=== PATIENT | female | born 1940 | race American Indian/Alaskan Native ===

== ENCOUNTER 2017-10-03 13:16 | Emergency (ER) | payer MEDICARE, MEDICAID ==
[2017-10-03 13:17] VITALS: BMI 25.7
[2017-10-03] MEDS ORDERED: Sodium Chloride 0.9% 1,000 ML IV STA (14:02)
[2017-10-03] MEDS ORDERED: Pantoprazole 40 MG in Sodium Chloride 0.9% 100 ML IV STA (14:02)
--- NOTE | 2017-10-03 14:02 | ED PDOC ---
Arrival/HPI - General Time Seen by Provider: 10/03/17 13:29 Historian: Patient - History of Present Illness Narrative History of Present Illness (Text): 10/03/17 14:01 A 77 year old female, whose past medical history includes hypertension, diabetes type 2, colitis, arthritis, GERD, and tubal ligation, presents to the emergency department complaining of abdominal cramping, nausea, and weakness. Patient reports she recently was discharged from another institution for episode of colitis . She notes also experiencing headache, lightheadedness, and "shocks in head" sensation. Patient mentions no other complaints at this time. 10/04/17 07:43 Past Medical History - Provider Review Nursing Documentation Reviewed: Yes - Infectious Disease Hx of Infectious Diseases: None - Tetanus Immunization Tetanus Immunization: Unknown - Cardiac Hx Hypertension: Yes - Neurological Hx Syncope: Yes - Endocrine/Metabolic Hx Diabetes Mellitus Type 2: Yes - Musculoskeletal/Rheumatological Hx Arthritis: Yes Hx Falls: No - Gastrointestinal Hx Gastrointestinal Disorders: (constipation) Hx Colitis: Yes Hx Gastroesophageal Reflux: Yes Other/Comment: pt needs laxitive to have a bm - Psychiatric Hx Psychophysiologic Disorder: No Hx Anxiety: No Hx Bipolar Disorder: No Hx Hallucinations: No Hx Panic Disorder: No Hx Post Traumatic Stress Disorder: No Hx Psychosis: No Hx Schizophrenia: No Hx Sexual Abuse: No Hx Substance Use: No - Surgical History Hx Tubal Ligation: Yes - Anesthesia Hx Anesthesia: Yes Hx Anesthesia Reactions: No Hx Malignant Hyperthermia: No - Suicidal Assessment Feels Threatened In Home Enviroment: No Family/Social History - Physician Review Nursing Documentation Reviewed: Yes Family/Social History: No Known Family HX Smoking Status: Former Smoker Hx Alcohol Use: No Hx Substance Use: No Hx Substance Use Treatment: No Allergies/Home Meds Allergies/Adverse Reactions: Allergies No Known Allergies Allergy (Verified 10/03/17 13:53) Home Medications: Home Meds Medication Instructions Recorded Confirmed Acetaminophen/Oxycodone Hydr 1 tab PO Q6 PRN 08/03/12 08/21/14 [Percocet 325 mg-10 mg] Amlodipine Besylate [Norvasc] 10 mg PO DAILY 08/03/12 08/21/14 Cyclobenzaprine Hydrochlorid 10 mg PO DAILY 08/03/12 08/21/14 [Cyclobenzaprine] Esomeprazole Magnesium [Nexium] 40 mg PO DAILY 08/03/12 08/21/14 Hydrochlorothiazide [Hydrochlor] 25 mg PO DAILY 08/03/12 08/21/14 Memantine [Namenda] 10 mg PO DAILY 08/03/12 08/21/14 Sertraline Hydrochloride 50 mg PO DAILY 08/03/12 08/21/14 [Sertraline] Valacyclovir Hydrochloride 500 mg PO BID 08/03/12 08/21/14 [Valacyclovir] Vitamin B Complex & Vitamin C 1 tab PO DAILY 08/03/12 08/21/14 [Strovite] Review of Systems - Physician Review All systems were reviewed & negative as marked: Yes - Review of Systems Constitutional: Other (weakness) Eyes: Vision Changes (blurry vision) Respiratory: absent: SOB Cardiovascular: absent: Chest Pain Gastrointestinal: Abdominal Pain (abdominal cramping), Nausea. absent: Diarrhea , Vomiting Neurological: Headache, Other (lightheadedness) Physical Exam Vital Signs Temp Pulse Resp BP Pulse Ox 10/03/17 18:33 83 18 129/72 98 10/03/17 14:03 98.6 F 90 24 128/65 100 - Systems Exam Head: Present: Atraumatic, Normocephalic Pupils: Present: PERRL Extroacular Muscles: Present: EOMI Conjunctiva: Present: Normal Respiratory/Chest: Present: Clear to Auscultation, Good Air Exchange. No: Respiratory Distress, Accessory Muscle Use Cardiovascular: Present: Regular Rate and Rhythm, Normal S1, S2. No: Murmurs Abdomen: Present: Tenderness (non-focal abdominal tenderness) Upper Extremity: Present: Normal Inspection. No: Cyanosis, Edema Lower Extremity: Present: Normal Inspection. No: Edema Neurological: Present: GCS=15, CN II-XII Intact, Speech Normal Skin: Present: Warm, Dry, Normal Color. No: Rashes Psychiatric: Present: Alert, Oriented x 3, Normal Insight, Normal Concentration Medical Decision Making ED Course and Treatment: 10/03/17 14:04 Impression: 77 year old female with abdominal cramping, nausea, weakness, , headache, and lightheadedness. Physical exam shows non-focal abdominal tenderness. will eval for metabolic infectious cardiac, abdominal intracranil etiology Plan: -- EKG -- Chest X-ray -- Labs -- Zofran -- Protonix -- IV Fluids -- Urinalysis -- Reassess and disposition Progress Notes: EKG: Ordered, reviewed, and independently interpreted the EKG. Rate : 88 BPM Rhythm : NSR Interpretation : Right Bundle Branch Block. Comparison : No previous EKG for comparison. 10/03/2017 14:28 Chest X-ray IMPRESSION: No active disease. No significant interval change compared to the prior examination(s). Dictator: Fernando Gerber MD 10/04/17 07:44 pt reassesed pain improved. pt smiling in nad. request pt be obs for near syncope overnight, however she declines. explained risk in detail. daughter is rn at bedside, agrees to watch pt closely. notified of pelvic ascites advise outtp fu. return precatuions advise.d - Lab Interpretations Lab Results: 10/03/17 14:20 10/03/17 14:20 Lab Results 10/03/17 17:26: Urine Color Yellow, Urine Appearance Clear, Urine pH 7.5, Ur Specific [place] 1.010, Urine Protein Negative, Urine Glucose (UA) Negative, Urine Ketones Negative, Urine Blood Negative, Urine Nitrate Negative, Urine Bilirubin Negative, Urine Urobilinogen 0.2, Ur Leukocyte Esterase Trace H, Urine RBC Negative, Urine WBC 5 - 10, Ur Epithelial Cells 4 - 5, Urine Bacteria Mod 10/03/17 14:20: Sodium 143, Potassium 3.8, Chloride 102, Carbon Dioxide 25, Anion Gap 20, BUN 13, Creatinine 1.2, Est GFR ( Amer) 53, Est GFR (Non- Af Amer) 44, Random Glucose 89, Calcium 10.6 H, Total Bilirubin 0.5, AST 25, ALT 22, Alkaline Phosphatase 68, Lactate Dehydrogenase 489, Total Creatine Kinase 72, Troponin I < 0.01, Total Protein 7.7, Albumin 4.6, Globulin 3.2, Albumin/Globulin Ratio 1.5, Amylase 121, Lipase 149 10/03/17 14:20: PT 11.6, INR 1.02, APTT 30.4 10/03/17 14:20: WBC 7.6, RBC 4.13, Hgb 12.5, Hct 37.1, MCV 89.8, MCH 30.3, MCHC 33.7, RDW 13.4, Plt Count 327, MPV 10.9, Gran % 55.5, Lymph % (Auto) 37.8 H, Young % (Auto) 5.9, Eos % (Auto) 0.5 L, Baso % (Auto) 0.3, Gran # 4.20, Lymph # ( Auto) 2.9, Young # (Auto) 0.5, Eos # (Auto) 0.0, Baso # (Auto) 0.02 - RAD Interpretation Radiology Orders: 10/03/17 14:03 CHEST PORTABLE [RAD] Stat 10/03/17 15:08 ABD & PELVIS IV CONTRAST ONLY [CT] Stat HEAD W/O CONTRAST [CT] Stat - Medication Orders Current Medication Orders: Discontinued Medications Pantoprazole Sodium 40 mg/ (Sodium Chloride) 100 mls @ 400 mls/hr IV STAT STA Stop: 10/03/17 14:16 Last Admin: 10/03/17 14:27 Dose: 400 mls/hr eMAR Start Stop Document 10/03/17 14:27 EQ (Rec: 10/03/17 14:27 EQ [id number]) Intravenous Solution Start Date 10/03/17 Start Time 14:27 Sodium Chloride (Sodium Chloride 0.9%) 1,000 mls @ 100 mls/hr IV .Q10H STA Stop: 10/04/17 00:01 Last Admin: 10/03/17 14:27 Dose: 100 mls/hr eMAR Start Stop Document 10/03/17 14:27 EQ (Rec: 10/03/17 14:27 EQ [id number]) Intravenous Solution Start Date 10/03/17 Start Time 14:27 Ondansetron HCl (Zofran Inj) 4 mg IVP STAT STA Stop: 10/03/17 14:03 Last Admin: 10/03/17 14:27 Dose: 4 mg IVP Administration Document 10/03/17 14:27 EQ (Rec: 10/03/17 14:27 EQ [id number]) Charges for Administration # of IVP Administrations 1 - Scribe Statement The provider has reviewed the documentation as recorded by the Merrick Zacarias Provider Scribe Attestation: All medical record entries made by the Scribe were at my direction and personally dictated by me. I have reviewed the chart and agree that the record accurately reflects my personal performance of the history, physical exam, medical decision making, and the department course for this patient. I have also personally directed, reviewed, and agree with the discharge instructions and disposition. Disposition/Present on Arrival - Present on Arrival Any Indicators Present on Arrival: No History of DVT/PE: No History of Uncontrolled Diabetes: No Urinary Catheter: No History of Decub. Ulcer: No History Surgical Site Infection Following: None - Disposition Have Diagnosis and Disposition been Completed?: Yes Diagnosis: UTI (urinary tract infection), Abdominal pain, Headache Disposition: HOME/ ROUTINE Disposition Time: 07:00 Condition: STABLE Discharge Instructions (ExitCare): Urinary Tract Infections in Adults, Acute Abdomen (Belly Pain), Adult (DC) Additional Instructions: you are declining observation in hospital. return to er with worsening symptoms or concerns. please discuss all test results with your doctor. you may need further workup. return immediately with worsening symptoms or concerns Prescriptions: Cefpodoxime [Vantin] 100 mg PO BID #20 tab Referrals: Sakshi Ceron MD [Staff Provider] - Follow up with primary Adilson Day MD [Staff Provider] - Follow up with primary Fabian Arias MD [Staff Provider] - Follow up with primary Forms: [employer] ([employer])
[2017-10-03 14:08] VITALS: TEMP 98.6
--- NOTE | 2017-10-03 14:29 | RAD ---
HISTORY: Abdominal pain. COMPARISON: 08/03/2012 FINDINGS: LUNGS: No active pulmonary disease. PLEURA: No significant pleural effusion identified, no pneumothorax apparent. CARDIOVASCULAR: No radiographic findings to suggest acute or significant cardiovascular disease. OSSEOUS STRUCTURES: No significant abnormalities. VISUALIZED UPPER ABDOMEN: Normal. OTHER FINDINGS: None. IMPRESSION: No active disease. No significant interval change compared to the prior examination(s).
[2017-10-03 15:01] LABS: BASO # 0.02 K/mm3 (0.0-2.0); BASO % 0.3 % (0.0-3.0); EOS % 0.5 % (1.5-5.0); GRAN # 4.2 (1.4-6.5); GRAN % 55.5 % (50.0-68.0); HEMOGLOBIN 12.5 g/dL (12.0-16.0); LYMPH # 2.9 (1.2-3.4); LYMPH % 37.8 % (22.0-35.0); MEAN CELL VOLUME 89.8 fl (80.0-105.0); MEAN CORPUSCULAR HEMOGLOBIN 30.3 pg (25.0-35.0); MEAN CORPUSCULAR HGB CONC 33.7 g/dl (31.0-37.0); MEAN PLATELET VOLUME 10.9 fl (7.0-11.0); MONO # 0.5 (0.1-0.6); MONO % 5.9 % (1.0-6.0); RBC 4.13 10^6/uL (3.5-6.1); RED CELL DISTRIBUTION WIDTH 13.4 % (11.5-14.5); WHITE BLOOD COUNT 7.6 10^3/ul (4.5-11.0)
[2017-10-03 15:07] LABS: ALB/GLOB RATIO 1.5 (1.1-1.8); ALBUMIN 4.6 g/dL (3.0-4.8); AMYLASE 121 U/L (35-125); CALCIUM 10.6 mg/dL (8.4-10.5); GFR AFRICAN-AMERICAN 53; GFR NON-AFRICAN AMERICAN 44; LIPASE 149 U/L (23-300)
[2017-10-03 15:11] LABS: ALT/SGPT 22 U/L (7-56); AST/SGOT 25 U/L (14-36); BLOOD UREA NITROGEN 13 mg/dL (7-21)
[2017-10-03 15:18] LABS: TROPONIN I < 0.01 ng/mL
[2017-10-03 15:19] LABS: INR 1.02 (0.93-1.08); PARTIAL THROMBOPLASTIN TIME 30.4 Seconds (25.1-36.5); PROTHROMBIN TIME 11.6 SECONDS (9.4-12.5)
[2017-10-03] MEDS ORDERED: Iodixanol 320 MG/ML 100 ML BOTTLE IV ONE (16:09)
--- NOTE | 2017-10-03 17:05 | CT ---
PROCEDURE: CT HEAD WITHOUT CONTRAST. HISTORY: Headache COMPARISON: None available. TECHNIQUE: Axial computed tomography images were obtained through the head/brain without intravenous contrast. Coronal and sagittal reconstructed images. Radiation dose: Total exam DLP = 844.95 mGy-cm. This CT exam was performed using one or more of the following dose reduction techniques: Automated exposure control, adjustment of the mA and/or kV according to patient size, and/or use of iterative reconstruction technique. FINDINGS: HEMORRHAGE: No intracranial hemorrhage. BRAIN: No mass effect or edema. No atrophy or chronic microvascular ischemic changes. VENTRICLES: Unremarkable. No hydrocephalus. CALVARIUM: Unremarkable. PARANASAL SINUSES: Unremarkable as visualized. No significant inflammatory changes. MASTOID AIR CELLS: Unremarkable as visualized. No inflammatory changes. OTHER FINDINGS: None. IMPRESSION: No acute intracranial abnormalities. No significant findings to account for the clinical presentation.
--- NOTE | 2017-10-03 17:10 | CT ---
PROCEDURE: CT Abdomen and Pelvis with contrast HISTORY: Diffuse abdominal cramping COMPARISON: 09/07/2015 CT abdomen and pelvis TECHNIQUE: Contrast dose: 100 cc Visipaque 320 Radiation dose: Total exam DLP = 384.14 mGy-cm. This CT exam was performed using one or more of the following dose reduction techniques: Automated exposure control, adjustment of the mA and/or kV according to patient size, and/or use of iterative reconstruction technique. FINDINGS: LOWER THORAX: 1 cm calcified granuloma right lower lobe. LIVER: Hepatic steatosis. No focal masses. No intrahepatic bile duct dilatation or perihepatic ascites. GALLBLADDER AND BILE DUCTS: Unremarkable. PANCREAS: Unremarkable. No gross lesion or ductal dilatation. SPLEEN: Unremarkable. ADRENALS: Unremarkable. No mass. KIDNEYS AND URETERS: Unremarkable. No hydronephrosis. No solid mass. VASCULATURE: Unremarkable. No aortic aneurysm. BOWEL: Unremarkable. No obstruction. No gross mural thickening. APPENDIX: Normal appendix. PERITONEUM: Low volume pelvic ascites. This appears be uncomplicated fluid based on Hounsfield units less than 20. LYMPH NODES: Unremarkable. No enlarged lymph nodes. BLADDER: Unremarkable. REPRODUCTIVE: Unremarkable. BONES: No acute fracture. OTHER FINDINGS: None. IMPRESSION: Low volume pelvic ascites. Otherwise no acute or significant findings or interval changes. . Additional benign and/or incidental findings described above.
[2017-10-03 17:36] LABS: PH,URINE 7.5 (4.7-8.0); URINE BILIRUBIN NEGATIVE (NEGATIVE); URINE BLOOD NEGATIVE (NEGATIVE); URINE GLUCOSE (UA) NEGATIVE (NEGATIVE); URINE LEUKOCYTE ESTERASE TRACE Leu/uL (NEGATIVE); URINE PROTEIN NEGATIVE mg/dL (<30 mg/dL); URINE UROBILINOGEN 0.2 E.U./dL (<1 E.U./dL)
[2017-10-03 17:47] LABS: URINE APPEARANCE CLEAR (CLEAR); URINE COLOR YELLOW (YELLOW)
[2017-10-03 17:51] LABS: URINE RBC NEGATIVE /hpf (0-2)
[2017-10-03 17:52] LABS: URINE BACTERIA MOD (NEG)
[2017-10-03 18:35] VITALS: BP 129/72; PULSE 83; RESP 18; O2SAT 98
--- NOTE | 2017-10-04 17:07 | CARD ---
APPROVED REPORT EKG Measurement Heart [id number] <Conclusion> Normal sinus rhythm Possible Left atrial enlargement Left axis deviation Incomplete right bundle branch block Abnormal ECG
== END 2017-10-03 18:31 | disposition home or self-care (01) ==
LOC: ED 13:16
DX: N39.0 Urinary tract infection, site not specified (principal); R51 Headache; R10.9 Unspecified abdominal pain; E11.9 Type 2 diabetes mellitus without complications; I10 Essential (primary) hypertension; K21.9 Gastro-esophageal reflux disease without esophagitis; Z87.891 Personal history of nicotine dependence
CPT/HCPCS: 70450; 71045; 74177; 80053; 81001; 82150; 82550; 83615; 83690; 84484; 85025; 85610; 85730; 87086; 93005; 96374; 96375; 99285; C9113; J2405; J7030; Q9967

== ENCOUNTER 2017-11-22 12:36 | Inpatient (IN) | payer MEDICARE, MEDICAID ==
[2017-11-22 12:43] VITALS: BMI 22.3
[2017-11-22] MEDS ORDERED: DiphenhydrAMINE 50 mg/ml Inj IVP STA (12:56)
--- NOTE | 2017-11-22 13:01 | ED PDOC ---
Arrival/HPI - General Chief Complaint: Allergic Reaction Time Seen by Provider: 11/22/17 12:49 Historian: Patient - History of Present Illness Narrative History of Present Illness (Text): 11/22/17 12:58 77 y/o female, whose PMH includes diabetes, hypertension, and GERD, who presents to the emergency department complaining of allergic reaction to the face since last night. Patient states her lips were swollen last night and became worse this morning. She notes taking Lisinopril before the swelling began one day ago. Patient denies shortness of breath, chest pain, fever, rash, cough, or other complaints. 11/22/17 14:13 Time/Duration: 24 hours Symptom Onset: Sudden Symptom Course: Unchanged Context: Home Past Medical History - Provider Review Nursing Documentation Reviewed: Yes - Infectious Disease Hx of Infectious Diseases: None - Tetanus Immunization Tetanus Immunization: Unknown - Reproductive Menopause: Yes - Cardiac Hx Cardiac Disorders: Yes Hx Hypertension: Yes - Pulmonary Hx Respiratory Disorders: No - Neurological Hx Syncope: Yes - Endocrine/Metabolic Hx Diabetes Mellitus Type 2: Yes - Musculoskeletal/Rheumatological Hx Arthritis: Yes Hx Falls: No - Gastrointestinal Hx Gastrointestinal Disorders: (constipation) Hx Colitis: Yes Hx Gastroesophageal Reflux: Yes Other/Comment: pt needs laxitive to have a bm - Psychiatric Hx Psychophysiologic Disorder: No Hx Anxiety: No Hx Bipolar Disorder: No Hx Hallucinations: No Hx Panic Disorder: No Hx Post Traumatic Stress Disorder: No Hx Psychosis: No Hx Schizophrenia: No Hx Sexual Abuse: No Hx Substance Use: No - Surgical History Hx Tubal Ligation: Yes - Anesthesia Hx Anesthesia: Yes Hx Anesthesia Reactions: No Hx Malignant Hyperthermia: No - Suicidal Assessment Feels Threatened In Home Enviroment: No Family/Social History - Physician Review Nursing Documentation Reviewed: Yes Family/Social History: Unknown Family HX Smoking Status: Former Smoker Hx Alcohol Use: No Hx Substance Use: No Hx Substance Use Treatment: No Allergies/Home Meds Allergies/Adverse Reactions: Allergies No Known Allergies Allergy (Verified 10/03/17 13:53) Home Medications: Home Meds Medication Instructions Recorded Confirmed Cyproheptadine [Periactin] 4 mg PO TID 11/22/17 11/22/17 amLODIPine [Norvasc] 2.5 mg PO DAILY 11/22/17 11/22/17 Review of Systems - Physician Review All systems were reviewed & negative as marked: Yes - Review of Systems ENT: Other (swelling on face and lips) Respiratory: absent: SOB Cardiovascular: absent: Chest Pain Physical Exam Vital Signs Reviewed: Yes Vital Signs Temp Pulse Resp BP Pulse Ox 11/22/17 14:50 75 18 138/71 11/22/17 14:29 75 18 138/71 100 11/22/17 12:48 98.3 F 86 18 144/75 100 11/22/17 12:42 98.3 F 86 18 144/75 100 Temperature: Afebrile Blood Pressure: Normal Pulse: Regular Respiratory Rate: Normal Appearance: Positive for: Well-Appearing, Non-Toxic, Comfortable Pain Distress: None Mental Status: Positive for: Alert and Oriented X 3 - Systems Exam Head: Present: Atraumatic, Normocephalic, Swelling (swelling on face) Pupils: Present: PERRL Extroacular Muscles: Present: EOMI Conjunctiva: Present: Normal Mouth: Present: Normal Teeth, Other (mild swelling to tongue). No: Normal Lips (swelling on lips) Pharnyx: No: Soft Palate/Uvular Edema Respiratory/Chest: Present: Clear to Auscultation, Good Air Exchange. No: Respiratory Distress, Accessory Muscle Use, Wheezes, Decreased Breath Sounds, Rales, Retracting, Rhonchi Cardiovascular: Present: Regular Rate and Rhythm, Normal S1, S2. No: Murmurs Abdomen: Present: Normal Bowel Sounds. No: Tenderness, Distention, Peritoneal Signs, Rebound, Guarding Neurological: Present: GCS=15, CN II-XII Intact, Speech Normal Skin: Present: Warm, Dry, Normal Color. No: Rashes Psychiatric: Present: Alert, Oriented x 3, Normal Insight, Normal Concentration Medical Decision Making ED Course and Treatment: 11/22/17 13:02 Impression: 77 y/o female with swelling on lips and face complaining of allergic reaction since last night. Plan: -- Benadryl, Pepcid, Solumedrol -- Labs -- Reassess and disposition Prior Visits: Notes and results from previous visits were reviewed. Progress Notes: 11/22/17 14:13 case discussed with ENT drafter refrigeration, will eval case. case discussed with dr nair icu , accepts icu. case discussed with dr hollins, accepts case. in er, no change in phonation, speaking full sentences. - Lab Interpretations Lab Results: 11/22/17 13:20 08/19/18 13:20 Lab Results 11/22/17 13:20: Sodium 144, Potassium 4.3, Chloride 104, Carbon Dioxide 32, Anion Gap 13, BUN 17, Creatinine 1.3 H, Est GFR ( Amer) 48, Est GFR (Non- Af Amer) 40, Random Glucose 94, Calcium 9.5, Total Bilirubin 0.4, AST 33, ALT 21 , Alkaline Phosphatase 65, Total Protein 7.5, Albumin 4.3, Globulin 3.3, Albumin /Globulin Ratio 1.3 11/22/17 13:20: WBC 4.7 D, RBC 3.55, Hgb 10.5 L D, Hct 32.0 L, MCV 90.1, MCH 29.6, MCHC 32.8, RDW 13.9, Plt Count 318, MPV 9.6, Gran % 49.2 L, Lymph % (Auto ) 42.8 H, [place] % (Auto) 6.3 H, Eos % (Auto) 1.5, Baso % (Auto) 0.2, Gran # 2.33 , Lymph # (Auto) 2.0, [place] # (Auto) 0.3, Eos # (Auto) 0.1, Baso # (Auto) 0.01 I have reviewed the lab results: Yes - Medication Orders Current Medication Orders: Amlodipine Besylate (Norvasc) 2.5 mg PO DAILY [facility] Diphenhydramine HCl (Benadryl) 25 mg IVP Q6H PRN PRN Reason: Allergy symptoms Famotidine (Pepcid) 20 mg IVP DAILY [facility] Heparin Sodium (Porcine) (Heparin) 5,000 units SC Q12 TIRSO PRN Reason: Protocol Sodium Chloride (Sodium Chloride 0.9%) 100 mls @ 75 mls/hr IV .Q1H20M TIRSO Last Admin: 11/22/17 17:02 Dose: 75 mls/hr eMAR Start Stop Document 11/22/17 17:02 AE (Rec: 11/22/17 17:02 AE [id number]) Intravenous Solution Start Date 11/22/17 Start Time 17:02 End Date 11/23/17 End time 05:00 Total Infusion Time 718 Methylprednisolone (Solu-Medrol) 40 mg IVP Q12 TIRSO Discontinued Medications Diphenhydramine HCl (Benadryl) 50 mg IVP STAT STA Stop: 11/22/17 12:57 Last Admin: 11/22/17 13:17 Dose: 50 mg IVP Administration Document 11/22/17 13:17 LA (Rec: 11/22/17 13:18 LA [id number]) Charges for Administration # of IVP Administrations 1 Diphenhydramine HCl (Benadryl) 50 mg IVP Q4H PRN PRN Reason: Allergy symptoms Famotidine (Pepcid) 20 mg IVP STAT STA Stop: 11/22/17 12:57 Last Admin: 11/22/17 13:17 Dose: 20 mg IVP Administration Document 11/22/17 13:17 LA (Rec: 11/22/17 13:17 LA [id number]) Charges for Administration # of IVP Administrations 1 Methylprednisolone (Solu-Medrol) 125 mg IVP STAT STA Stop: 11/22/17 12:57 Last Admin: 11/22/17 13:17 Dose: 125 mg IVP Administration Document 11/22/17 13:17 LA (Rec: 11/22/17 13:17 LA [id number]) Charges for Administration # of IVP Administrations 1 - Scribe Statement The provider has reviewed the documentation as recorded by the Merrick Damon Provider Scribe Attestation: All medical record entries made by the Scribe were at my direction and personally dictated by me. I have reviewed the chart and agree that the record accurately reflects my personal performance of the history, physical exam, medical decision making, and the department course for this patient. I have also personally directed, reviewed, and agree with the discharge instructions and disposition. Disposition/Present on Arrival - Present on Arrival Any Indicators Present on Arrival: No History of DVT/PE: No History of Uncontrolled Diabetes: No Urinary Catheter: No History of Decub. Ulcer: No History Surgical Site Infection Following: None - Disposition Have Diagnosis and Disposition been Completed?: Yes Diagnosis: Angioedema Disposition: HOSPITALIZED Disposition Time: 03:30 Condition: CRITICAL
[2017-11-22 13:37] LABS: BASO # 0.01 K/mm3 (0.0-2.0); BASO % 0.2 % (0.0-3.0); EOS # 0.1 (0.0-0.7); EOS % 1.5 % (1.5-5.0); GRAN # 2.33 (1.4-6.5); GRAN % 49.2 % (50.0-68.0); HEMOGLOBIN 10.5 g/dL (12.0-16.0); LYMPH % 42.8 % (22.0-35.0); MEAN CELL VOLUME 90.1 fl (80.0-105.0); MEAN CORPUSCULAR HEMOGLOBIN 29.6 pg (25.0-35.0); MEAN CORPUSCULAR HGB CONC 32.8 g/dl (31.0-37.0); MEAN PLATELET VOLUME 9.6 fl (7.0-11.0); MONO # 0.3 (0.1-0.6); MONO % 6.3 % (1.0-6.0); RBC 3.55 10^6/uL (3.5-6.1); RED CELL DISTRIBUTION WIDTH 13.9 % (11.5-14.5); WHITE BLOOD COUNT 4.7 10^3/ul (4.5-11.0)
[2017-11-22 13:47] LABS: ALB/GLOB RATIO 1.3 (1.1-1.8); ALBUMIN 4.3 g/dL (3.0-4.8); CALCIUM 9.5 mg/dL (8.4-10.5)
[2017-11-22] MEDS ORDERED: DiphenhydrAMINE 50 mg/ml Inj IVP PRN ×2 (14:53→15:00)
[2017-11-22] MEDS ORDERED: Sodium Chloride 0.9% 100 ML IV SCH (15:00)
--- NOTE | 2017-11-22 15:20 | CP.PCM.HP ---
<JosesitoTorres - Last Filed: 11/22/17 15:46> History of Present Illness - History of Present Illness History of Present Illness: Torres Bellamy, PGY 1. History and Physical for Dr Oscar 77 y/o female with PMH of hypertension, GERD, arthritis presents to ED with 1 day h/o facial edema more prominent to upper and lower lips and left side of her face. swelling of her face started at 2 pm right before she took her medications. Patient denied eating any new foods. Patient denied shortness of breath but her throat was itchy. Symptoms not related to food ingestion, occurred before taking her daily meds. She never experienced similar symptoms before. She is taking lisinopril for few years with no problems before. Patient has never been hospitalized or intubated before, and does not have an epi-pen at home. Patient denies SOB, chest pain, palpitation, wheezing, cough, difficulty or pain swallowing, numbness, tingling, fever , chills, abdominal pain or any other complaints at this time. PMH: hypertension, GERD, arthritis PSH: tubal ligation SocH: denied smoking. occasionally drinks alcohol. no illicit drug use FAMILY HISTORY: mother had breast cancer. father had CAD Meds: lisinopril, amlodipine, cyproheptadine, atorvaststin, meclizine, omeprazole ALLERGIES: pollen, NDKA Present on Admission - Present on Admission Any Indicators Present on Admission: No Review of Systems - Constitutional Constitutional: absent: Anorexia, Chills, Fever - EENT Eyes: absent: Diplopia, Pain, Photophobia - Cardiovascular Cardiovascular: absent: Chest Pain, Chest Pain with Activity, Dyspnea on Exertion, Lightheadedness - Respiratory Respiratory: absent: Cough, Dyspnea, Pain on Inspiration - Gastrointestinal Gastrointestinal: Heartburn. absent: Abdominal Pain, Bloating - Genitourinary Genitourinary: absent: Change in Urinary Stream, Hematuria, Pyuria - Musculoskeletal Musculoskeletal: Muscle Weakness. absent: Atrophy, Back Pain - Integumentary Integumentary: Swelling. absent: Lesions, Rash, Sores Additional comments: facial, upper and lower lips - Neurological Neurological: absent: Dizziness, Numbness, Headaches, Tingling - Psychiatric Psychiatric: absent: Anxiety, Confusion, Depression - Endocrine Endocrine: absent: Polydipsia, Polyphagia, Polyuria - Hematologic/Lymphatic Hematologic: absent: Easy Bleeding, Easy Bruising Past Patient History - Infectious Disease Hx of Infectious Diseases: None - Tetanus Immunizations Tetanus Immunization: Unknown - Past Social History Smoking Status: Former Smoker - CARDIAC Hx Cardiac Disorders: Yes Hx Hypertension: Yes - PULMONARY Hx Respiratory Disorders: No - NEUROLOGICAL Hx Syncope: Yes - ENDOCRINE/METABOLIC Hx Diabetes Mellitus Type 2: Yes - MUSCULOSKELETAL/RHEUMATOLOGICAL Hx Falls: No - GASTROINTESTINAL Hx Gastrointestinal Disorders: (constipation) Hx Gastroesophageal Reflux: Yes Other/Comment: pt needs laxitive to have a bm - PSYCHIATRIC Hx Psychophysiologic Disorder: No Hx Anxiety: No Hx Bipolar Disorder: No Hx Hallucinations: No Hx Panic Symptoms: No Hx Post Traumatic Stress Disorder: No Hx Psychosis: No Hx Schizophrenia: No Hx Sexual Abuse: No - SURGICAL HISTORY Hx Surgeries: Yes (tubal ligation) Hx Cardiac Catheterization: Yes - ANESTHESIA Hx Anesthesia: Yes Hx Anesthesia Reactions: No Hx Malignant Hyperthermia: No Meds Allergies/Adverse Reactions: Allergies Allergy/AdvReac Type Severity Reaction Status Date / Time No Known Allergies Allergy Verified 10/03/17 13:53 Physical Exam - Constitutional Appears: Well, No Acute Distress - Eye Exam Eye Exam: EOMI, Normal appearance, PERRL Pupil Exam: NORMAL ACCOMODATION - Expanded ENT Exam Expanded Mouth exam: moist, tongue normal. absent: drooling, muffled voice Teeth exam: normal external inspection Throat exam: Normal Inspection - Neck Exam Neck exam: Positive for: Normal Inspection - Respiratory Exam Respiratory Exam: Clear to Auscultation Bilateral, NORMAL BREATHING PATTERN - Cardiovascular Exam Cardiovascular Exam: REGULAR RHYTHM, +S1, +S2 - GI/Abdominal Exam GI & Abdominal Exam: Normal Bowel Sounds, Soft. absent: Tenderness - Back Exam Back exam: NORMAL INSPECTION - Neurological Exam Neurological exam: Alert, CN II-XII Intact, Normal Gait, Oriented x3, Reflexes Normal - Psychiatric Exam Psychiatric exam: Normal Affect, Normal Mood - Skin Skin Exam: Dry, Intact, Normal Color, Warm Results - Vital Signs Recent Vital Signs: Last Vital Signs Temp 98.3 F 11/22/17 12:48 Pulse 75 11/22/17 14:50 Resp 18 11/22/17 14:50 BP 138/71 11/22/17 14:50 Pulse Ox 100 11/22/17 14:29 - Labs Result Diagrams: 11/22/17 13:20 11/22/17 13:20 Assessment & Plan - Assessment and Plan (Free Text) Assessment: 77 y/o female with PMH of hypertension, GERD, arthritis presents to ED with 1 day h/o facial edema more prominent to upper and lower lips and left side of her face. Swelling of her face started at 2 pm right before she took her medications. Plan: Fascial/lip swelling -Likely allergic reaction to lisinopril -CXR ordered -Solumedrol 125, Benadryl 50 given in ED -Start solumedrol 40 IVP Q12H -Start Benadryl 25 Q6H PRN -NPO -ENT consulted Dr Esquivel -Oxygen prn. monitor oxygen sat -IV fluid: NS @75 ml/hr -C1 esterase inhibitor, C1Q serum levels ordered HTN: -Hold lisinopril -continue home med amlodipine 2.5 -BP monitor Hyperlipidemia: -Continue home med Lipitor GERD: -Pepcid -DVT ppx: Heparin 5000 sc q12 hr -fall precaution Case reviewed and discussed with Dr Moore - - Date & Time Date: 11/22/17 Time: 02:40 <Maureen Moore - Last Filed: 11/22/17 16:55> Results - Vital Signs Recent Vital Signs: Last Vital Signs Temp 98 F 11/22/17 15:30 Pulse 68 11/22/17 15:30 Resp 18 11/22/17 15:30 BP 128/75 11/22/17 15:30 Pulse Ox 100 11/22/17 15:30 - Labs Result Diagrams: 11/22/17 13:20 11/22/17 13:20 Attending/Attestation - Attestation I have personally seen and examined this patient.: Yes I have fully participated in the care of the patient.: Yes I have reviewed all pertinent clinical information: Yes Notes (Text): 11/22/17 16:41 77 year old female with past medical history of hypertension and GERD who presents with facial edema, mostly prominent in her lips. She is on lisinopril although this is not a new medication. Otherwise denies any allergies to any medications. She is started on iv steroids, pepcid and benadryl prn. She already reports some improvement of swelling. Denies any shortness of breath. Denies any rash. Will monitor closely. Continue with norvasc for hypertension. Lisinopril should be held. Explained to patient upon discharge she should see an tangled yarn worker and have epipen. Maureen Moore MD Hospitalist.
--- NOTE | 2017-11-22 17:13 | RAD ---
Date of service: 11/22/2017 HISTORY: admission COMPARISON: Comparison chest 10/03/2017 FINDINGS: LUNGS: Minor bibasilar atelectasis right PLEURA: No significant pleural effusion identified, no pneumothorax apparent. CARDIOVASCULAR: Normal. OSSEOUS STRUCTURES: No significant abnormalities. VISUALIZED UPPER ABDOMEN: Normal. OTHER FINDINGS: None. IMPRESSION: Minor bibasilar atelectasis greater than left right greater than left.
--- NOTE | 2017-11-22 21:45 | CON ---
Copied To: Vernon Garham MD Attending MD: Vernon Graham MD DATE: 11/22/2017 PRESS CATCHER NOTE LOCATION: [facility]. REQUESTING PHYSICIAN: Dr. Moore. CHIEF COMPLAINT: The patient presented with swelling of her face and lips. HISTORY OF PRESENT ILLNESS: Ms. Medel is a 77-year-old female with a history of hypertension, GERD and arthritis. The patient states that she last took her blood pressure medications yesterday and at approximately 02:00 a.m., she started feeling swelling of her face and her lips that seemed to continually get worse over the day to the point where she came to the emergency room. The patient has no problems of swallowing or speaking and her tongue is not swollen at this time. No fever, chills, nausea or vomiting. No chest pain, abdominal pain. No diarrhea. The patient has no past history of any allergies and has been taking the BRYANT inhibitors, lisinopril for some time now with no adverse reaction. PAST MEDICAL HISTORY: As above. ALLERGIES: SHE HAS NO KNOWN ALLERGIES. CURRENT MEDICATIONS: Can be evaluated as per the nurse's intake form. SOCIAL HISTORY: No history of smoking, EtOH abuse or drug abuse. FAMILY HISTORY: Noncontributory. REVIEW OF SYSTEMS: HEENT: The patient has swelling in her face and her lips. CONSTITUTIONAL: All negative. LUNGS: All negative. CARDIOVASCULAR: All negative. GASTROINTESTINAL: All negative. : All negative. MUSCULOSKELETAL: All negative. NEUROPSYCHIATRIC: All negative. HEMATOLOGIC: All negative. IMMUNOLOGIC: All negative. INTEGRITY: All negative. ENDOCRINE: All negative. PHYSICAL EXAMINATION: VITAL SIGNS: Note that her temperature is 98.3, her pulse is 75, respirations are 18 and BP is 138/71, O2 saturation is 100% on room air. HEENT: Head, atraumatic and normocephalic. Eyes, reactive to light. Ear, nose and throat, seems to be within normal limits except note that the face around the mouth and the nose is quite swollen, but normal in color, no erythema, no obvious signs of trauma. The patient is speaking freely and no tongue swelling is noted. LUNGS: Reveal good breath sounds bilaterally. HEART: Has regular rate and rhythm. Normal S1, S2. No murmurs or gallops. ABDOMEN: Soft, nontender. Normal bowel sounds. No organomegaly noted. GENITALIA: Deferred. RECTAL: Deferred. MUSCULOSKELETAL: No joint deformities. EXTREMITIES: Reveal no edema. NEUROLOGICALLY: She seemed to be grossly intact. LABORATORY DATA: As far as her laboratories are concerned, her white count is 4.7, hemoglobin is 10.5, hematocrit 32 with platelets of 318,000. Sodium is 144, potassium 4.3, chloride 104, CO2 of 32 with a of BUN of 17, creatinine of 1.3 and a glucose of 94. Chest x-ray is pending. IMPRESSION: As far as my impression is concerned, this patient has angioedema with facial swelling, most likely secondary to BRYANT inhibitor/lisinopril. The patient has a history of hypertension, gastroesophageal reflux disease and arthritis. She is noticed to have anemia as well. PLAN: We will admit to the intensive care unit for close observation. The patient is getting Benadryl every 6 hours p.r.n. She was started on heparin subcu prophylactically. She continues with her Norvasc, getting Pepcid and will be getting IV fluids of normal saline and started on Solu-Medrol 40 mg every 12 hours. We will continue to treat aggressively along with the other consultants and the primary care doctor. Please note that a call has been placed for the patient, an ENT will see her, Dr. Esquivel. Vernon Graham MD
[2017-11-22] MEDS: MethylPREDNISolone 40 mg Vial IVP SCH (22:01)
[2017-11-23] MEDS ORDERED: Sodium Chloride 0.9% 1,000 ML IV SCH (06:06)
--- NOTE | 2017-11-23 06:20 | CP.PCM.PN ---
<Torres Bellamy - Last Filed: 11/23/17 15:16> Subjective - Date & Time of Evaluation Date of Evaluation: 11/23/17 Time of Evaluation: 06:20 - Subjective Subjective: Patient seen and examined at bedside. No significant overnight events. Patient' s facial swelling and getting better. Lower hip swelling is improving. She was able to eat. She denies SOB, difficulty swallowing, painful swelling, fever, chills, chest pain, palpitations, urinary symptoms, nausea, vomiting. Objective - Vital Signs/Intake and Output Vital Signs (last 24 hours): Temp Pulse Resp BP Pulse Ox 98 F 92 H 13 123/61 99 11/23/17 00:00 11/23/17 04:20 11/23/17 04:20 11/23/17 04:00 11/23/17 04:20 Intake and Output: 11/22/17 11/23/17 18:59 06:59 Intake Total 300 Balance 300 - Medications Medications: Current Medications Amlodipine Besylate (Norvasc) 2.5 mg PO DAILY [facility] Diphenhydramine HCl (Benadryl) 25 mg IVP Q6H PRN PRN Reason: Allergy symptoms Famotidine (Pepcid) 20 mg IVP DAILY [facility] Heparin Sodium (Porcine) (Heparin) 5,000 units SC Q12 [facility] PRN Reason: Protocol Last Admin: 11/22/17 22:01 Dose: 5,000 units Sodium Chloride (Sodium Chloride 0.9%) 1,000 mls @ 75 mls/hr IV .[id number] [facility] Methylprednisolone (Solu-Medrol) 40 mg IVP Q12 [facility] Last Admin: 11/22/17 22:01 Dose: 40 mg - Constitutional Appears: Well, No Acute Distress - Head Exam Head Exam: ATRAUMATIC, NORMAL INSPECTION, NORMOCEPHALIC Additional comments: facial swelling improving, lower lip swelling is regressing compared to yesterday. localized hard palate swelling enlarged tonsils - Eye Exam Eye Exam: EOMI, Normal appearance, PERRL Pupil Exam: NORMAL ACCOMODATION, PERRL - ENT Exam ENT Exam: Mucous Membranes Moist, Normal Exam, Normal Oropharynx - Neck Exam Neck Exam: Full ROM, Normal Inspection. absent: Lymphadenopathy, Tenderness - Respiratory Exam Respiratory Exam: Clear to Ausculation Bilateral, NORMAL BREATHING PATTERN - Cardiovascular Exam Cardiovascular Exam: REGULAR RHYTHM, +S1, +S2. absent: Murmur - GI/Abdominal Exam GI & Abdominal Exam: Soft, Normal Bowel Sounds. absent: Tenderness Additional comments: mild suprapubic tenderness - Extremities Exam Extremities Exam: Full ROM, Normal Capillary Refill, Normal Inspection. absent : Joint Swelling, Pedal Edema - Back Exam Back Exam: NORMAL INSPECTION - Neurological Exam Neurological Exam: Alert, Awake, CN II-XII Intact, Normal Gait, Oriented x3 - Psychiatric Exam Psychiatric exam: Normal Affect, Normal Mood - Skin Skin Exam: Dry, Intact, Normal Color, Warm Assessment and Plan - Assessment and Plan (Free Text) Assessment: 77 y/o female with PMH of hypertension, GERD, arthritis presents to ED with 1 day h/o facial edema more prominent to upper and lower lips and left side of her face. No SOB, speech difficulty. Patient admitted for observation. Plan: Angioedema with Fascial swelling -Likely due to lisinopril -CXR: minor bibasilar atelectasis -Solumedrol 125, Benadryl 50 given in ED -continue solumedrol 40 IVP Q12H -continue Benadryl 25 Q6H PRN -Per ENT consult: patient was scoped , no laryngeal edema, oropharynx is nomal. No need to follow up. -Oxygen prn. monitor oxygen sat -C1 esterase inhibitor, C1Q serum levels ordered -Diet advanced to regular HTN: -Hold lisinopril -continue home med amlodipine 2.5 -BP monitor Hyperlipidemia: -Continue home med Lipitor GERD: -Pepcid -DVT ppx: Heparin 5000 sc q12 hr -fall precaution Case reviewed and discussed with Dr Richardson <Brianna Richardson - Last Filed: 11/25/17 07:27> Objective - Vital Signs/Intake and Output Vital Signs (last 24 hours): Temp Pulse Resp BP Pulse Ox 98.7 F 96 H 18 139/83 100 11/24/17 07:53 11/24/17 07:53 11/24/17 07:53 11/24/17 10:04 11/24/17 07:53 - Labs Labs: 11/24/17 06:00 11/24/17 06:00 Attending/Attestation - Attestation I have personally seen and examined this patient.: Yes I have fully participated in the care of the patient.: Yes I have reviewed all pertinent clinical information, including history, physical exam and plan: Yes Notes (Text): 11/25/17 07:25 Attending note; Patient seen and examined with resident. Patient is a 77 year old female with past medical history of hypertension and GERD who presents with facial edema, mostly prominent in her lips. She is on lisinopril although this is not a new medication. Patient had one episode of allergic reaction in the past needed to be evaluated in the hospital. Patient takes Benadryl on and off. She is started on iv steroids, pepcid and benadryl prn. Swelling is improving. Currently no stridor, cough or wheezing . Tolerating diet well . Denies any shortness of breath. Denies any rash. Continue with norvasc for hypertension. Lisinopril is on hold. ENT evaluation requested. Explained to patient upon discharge she should see an cutting tool sharpener and have epipen. Upon discharge patient will follow-up with PMD Dr. Pena.
[2017-11-23 06:28] LABS: GRAN # 5.93 (1.4-6.5); GRAN % 80.6 % (50.0-68.0); HEMOGLOBIN 10.6 g/dL (12.0-16.0); LYMPH # 1.4 (1.2-3.4); LYMPH % 18.4 % (22.0-35.0); MEAN CELL VOLUME 90.3 fl (80.0-105.0); MEAN CORPUSCULAR HEMOGLOBIN 29.4 pg (25.0-35.0); MEAN CORPUSCULAR HGB CONC 32.5 g/dl (31.0-37.0); MEAN PLATELET VOLUME 10.3 fl (7.0-11.0); MONO # 0.1 (0.1-0.6); RBC 3.61 10^6/uL (3.5-6.1); RED CELL DISTRIBUTION WIDTH 14.1 % (11.5-14.5)
[2017-11-23 06:51] LABS: WHITE BLOOD COUNT 7.4 10^3/ul (4.5-11.0)
[2017-11-23 07:00] LABS: ALB/GLOB RATIO 1.2 (1.1-1.8); ALBUMIN 4.1 g/dL (3.0-4.8); CALCIUM 9.1 mg/dL (8.4-10.5)
[2017-11-23] MEDS: MethylPREDNISolone 40 mg Vial IVP SCH ×2 (09:28→21:06)
--- NOTE | 2017-11-23 10:44 | CP.CCUPN ---
<Arnaldo Carmen - Last Filed: 11/23/17 10:40> CCU Subjective - Physician Review Events Since Last Encounter (Free Text): Wandapriti Kermit, PGY-1 ICU Progress Note Patient seen and examined at bedside this morning. No acute events overnight. Patient states she is breathing well and has no complaints at this time. She denies CP, SOB, abdominal pain, extremity swelling, dysphagia, fevers, chills, nausea, vomiting and back pain. 12 point ROS noted here, otherwise unremarkable. CCU Objective - Vital Signs / Intake & Output Vital Signs (Last 4 hours): Vital Signs Pulse Resp BP Pulse Ox 11/23/17 09:29 135/69 11/23/17 07:00 107 H 17 137/81 100 11/23/17 06:50 98 Intake and Output (Last 8hrs): Intake & Output 11/22/17 11/23/17 11/23/17 22:59 06:59 14:59 Intake Total 300 900 Output Total 550 Balance 300 350 Weight 128 lb 14.4 oz Intake: IV 300 900 Left Antecubital 300 Right Wrist 900 Oral 0 0 Output: Urine 550 Urine, Voided 550 Other: # Bowel Movements 0 0 - Physical Exam Head: Positive for: Atraumatic, Normocephalic Pupils: Positive for: PERRL Extroacular Muscles: Positive for: EOMI Conjunctiva: Positive for: Normal Mouth: Positive for: Moist Mucous Membranes, Normal Lips (minimal swelling on upper and lower lips) Pharnyx: Negative for: Soft Palate/Uvular Edema Respiratory/Chest: Positive for: Clear to Auscultation, Good Air Exchange. Negative for: Respiratory Distress, Accessory Muscle Use, Wheezes, Decreased Breath Sounds, Rales, Retracting, Rhonchi Cardiovascular: Positive for: Regular Rate and Rhythm, Normal S1, S2. Negative for: Murmurs Abdomen: Positive for: Normal Bowel Sounds. Negative for: Tenderness, Distention, Rebound, Guarding Neurological: Positive for: GCS=15, CN II-XII Intact, Speech Normal Skin: Positive for: Warm, Dry, Normal Color. Negative for: Rashes Psychiatric: Positive for: Alert, Oriented x 3, Normal Insight, Normal Concentration - Medications Active Medications: Active Medications Generic Name Dose Route Start Last Admin Trade Name Freq PRN Reason Stop Dose Admin Amlodipine Besylate 2.5 mg 11/23/17 10:00 11/23/17 09:29 Norvasc PO 2.5 mg DAILY TIRSO Administration Diphenhydramine HCl 25 mg 11/22/17 15:00 Benadryl IVP Q6H PRN Allergy symptoms Famotidine 20 mg 11/23/17 10:00 11/23/17 09:29 Pepcid IVP 20 mg DAILY T[facility]SO Administration Heparin Sodium (Porcine) 5,000 units 11/22/17 22:00 11/23/17 09:28 Heparin SC 5,000 units Q12 T[facility]SO Administration Protocol Methylprednisolone 40 mg 11/22/17 22:00 11/23/17 09:28 Solu-Medrol IVP 40 mg Q12 T[facility]SO Administration - Patient Studies Lab Studies: Lab Studies 11/23/17 11/23/17 Range/Units 05:20 05:20 WBC 7.4 D (4.5-11.0) 10^3/ul RBC 3.61 (3.5-6.1) 10^6/uL Hgb 10.6 L (12.0-16.0) g/dL Hct 32.6 L (36.0-48.0) % MCV 90.3 (80.0-105.0) fl MCH 29.4 (25.0-35.0) pg MCHC 32.5 (31.0-37.0) g/dl RDW 14.1 (11.5-14.5) % Plt Count 337 (120.0-450.0) 10^3/uL MPV 10.3 (7.0-11.0) fl Gran % 80.6 H (50.0-68.0) % Lymph % (Auto) 18.4 L (22.0-35.0) % Lyman % (Auto) 1.0 (1.0-6.0) % Eos % (Auto) 0.0 L (1.5-5.0) % Baso % (Auto) 0.0 (0.0-3.0) % Gran # 5.93 (1.4-6.5) Lymph # (Auto) 1.4 (1.2-3.4) Lyman # (Auto) 0.1 (0.1-0.6) Eos # (Auto) 0.0 (0.0-0.7) Baso # (Auto) 0.00 (0.0-2.0) K/mm3 Sodium 146 (132-148) mmol/L Potassium 4.7 (3.6-5.0) mmol/L Chloride 108 H (98-107) mmol/L Carbon Dioxide 27 (21-33) mmol/L Anion Gap 16 (10-20) BUN 18 (7-21) mg/dL Creatinine 1.2 (0.7-1.2) mg/dl Est GFR ( Amer) 53 Est GFR (Non-Af Amer) 44 Random Glucose 112 H (70-110) mg/dL Calcium 9.1 (8.4-10.5) mg/dL Total Bilirubin 0.3 (0.2-1.3) mg/dL AST 30 (14-36) U/L ALT 21 (7-56) U/L Alkaline Phosphatase 64 (38-126) U/L Total Protein 7.5 (5.8-8.3) g/dL Albumin 4.1 (3.0-4.8) g/dL Globulin 3.4 gm/dL Albumin/Globulin Ratio 1.2 (1.1-1.8) Laboratory Results - last 24 hr 11/23/17 11/23/17 05:20 05:20 WBC 7.4 D RBC 3.61 Hgb 10.6 L Hct 32.6 L MCV 90.3 MCH 29.4 MCHC 32.5 RDW 14.1 Plt Count 337 MPV 10.3 Gran % 80.6 H Lymph % (Auto) 18.4 L Lyman % (Auto) 1.0 Eos % (Auto) 0.0 L Baso % (Auto) 0.0 Gran # 5.93 Lymph # (Auto) 1.4 Lyman # (Auto) 0.1 Eos # (Auto) 0.0 Baso # (Auto) 0.00 Sodium 146 Potassium 4.7 Chloride 108 H Carbon Dioxide 27 Anion Gap 16 BUN 18 Creatinine 1.2 Est GFR ( Amer) 53 Est GFR (Non-Af Amer) 44 Random Glucose 112 H Calcium 9.1 Total Bilirubin 0.3 AST 30 ALT 21 Alkaline Phosphatase 64 Total Protein 7.5 Albumin 4.1 Globulin 3.4 Albumin/Globulin Ratio 1.2 Critical Care Progress Note - Nutrition Nutrition: Nutrition Category Date Time Status Regular Diet [DIET] Diets 11/23/17 Breakfast Ordered Assessment/Plan - Assessment and Plan (Free Text) Assessment: This is 77 year old female with PMH of dementia, GERD, HT and arthritis presenting to the ICU for management of angioedema. Patient has no current difficulty with breathing or swallowing and will be transferred to med-surg today. Plan: Neuro: -maintain normothermia -AAO x3, moving extremities spontaneously past midline Cardio: -maintain MAP>65 -will monitor vitals including HR and BP -continue amlodipine 2.5mg daily Lungs: -SaO2 >90% -supplementary O2 PRN -CXR showed minor bilateral atelectasis right greater than left -solumedrol 40mg IVP q12 Renal: -maintain euvolemia -avoid nephrotoxic agents, hypochloremia -replace electrolytes as needed -BUN/Cr 18/1.2 Heme: -DVT ppx with heparin 5k -benadryl -Dr. Esquivel on consult for ENT Endo: -maintain euglycemia ID: -WBC is today 7.4 WNL, afebrile -blood culture, urine culture, MRSA screen pending -GI: -regular diet -GI prophylaxis with pepcid <Lonny Bunn - Last Filed: 11/23/17 12:31> CCU Objective - Vital Signs / Intake & Output Vital Signs (Last 4 hours): Vital Signs BP 11/23/17 09:29 135/69 Intake and Output (Last 8hrs): Intake & Output 11/22/17 11/23/17 11/23/17 22:59 06:59 14:59 Intake Total 300 900 Output Total 550 Balance 300 350 Weight 128 lb 14.4 oz 58 lb 1.6 oz Intake: IV 300 900 Left Antecubital 300 Right Wrist 900 Oral 0 0 Output: Urine 550 Urine, Voided 550 Other: # Bowel Movements 0 0 - Medications Active Medications: Active Medications Generic Name Dose Route Start Last Admin Trade Name Freq PRN Reason Stop Dose Admin Amlodipine Besylate 2.5 mg 11/23/17 10:00 11/23/17 09:29 Norvasc PO 2.5 mg DAILY T[facility] Administration Diphenhydramine HCl 25 mg 11/22/17 15:00 Benadryl IVP Q6H PRN Allergy symptoms Famotidine 20 mg 11/23/17 10:00 11/23/17 09:29 Pepcid IVP 20 mg DAILY [facility] Administration Heparin Sodium (Porcine) 5,000 units 11/22/17 22:00 11/23/17 09:28 Heparin SC 5,000 units Q12 [facility] Administration Protocol Methylprednisolone 40 mg 11/22/17 22:00 11/23/17 09:28 Solu-Medrol IVP 40 mg Q12 T[facility] Administration - Patient Studies Lab Studies: Lab Studies 11/23/17 11/23/17 Range/Units 05:20 05:20 WBC 7.4 D (4.5-11.0) 10^3/ul RBC 3.61 (3.5-6.1) 10^6/uL Hgb 10.6 L (12.0-16.0) g/dL Hct 32.6 L (36.0-48.0) % MCV 90.3 (80.0-105.0) fl MCH 29.4 (25.0-35.0) pg MCHC 32.5 (31.0-37.0) g/dl RDW 14.1 (11.5-14.5) % Plt Count 337 (120.0-450.0) 10^3/uL MPV 10.3 (7.0-11.0) fl Gran % 80.6 H (50.0-68.0) % Lymph % (Auto) 18.4 L (22.0-35.0) % Lyman % (Auto) 1.0 (1.0-6.0) % Eos % (Auto) 0.0 L (1.5-5.0) % Baso % (Auto) 0.0 (0.0-3.0) % Gran # 5.93 (1.4-6.5) Lymph # (Auto) 1.4 (1.2-3.4) Lyman # (Auto) 0.1 (0.1-0.6) Eos # (Auto) 0.0 (0.0-0.7) Baso # (Auto) 0.00 (0.0-2.0) K/mm3 Sodium 146 (132-148) mmol/L Potassium 4.7 (3.6-5.0) mmol/L Chloride 108 H (98-107) mmol/L Carbon Dioxide 27 (21-33) mmol/L Anion Gap 16 (10-20) BUN 18 (7-21) mg/dL Creatinine 1.2 (0.7-1.2) mg/dl Est GFR ( Amer) 53 Est GFR (Non-Af Amer) 44 Random Glucose 112 H (70-110) mg/dL Calcium 9.1 (8.4-10.5) mg/dL Total Bilirubin 0.3 (0.2-1.3) mg/dL AST 30 (14-36) U/L ALT 21 (7-56) U/L Alkaline Phosphatase 64 (38-126) U/L Total Protein 7.5 (5.8-8.3) g/dL Albumin 4.1 (3.0-4.8) g/dL Globulin 3.4 gm/dL Albumin/Globulin Ratio 1.2 (1.1-1.8) Laboratory Results - last 24 hr 11/23/17 11/23/17 05:20 05:20 WBC 7.4 D RBC 3.61 Hgb 10.6 L Hct 32.6 L MCV 90.3 MCH 29.4 MCHC 32.5 RDW 14.1 Plt Count 337 MPV 10.3 Gran % 80.6 H Lymph % (Auto) 18.4 L Lyman % (Auto) 1.0 Eos % (Auto) 0.0 L Baso % (Auto) 0.0 Gran # 5.93 Lymph # (Auto) 1.4 Lyman # (Auto) 0.1 Eos # (Auto) 0.0 Baso # (Auto) 0.00 Sodium 146 Potassium 4.7 Chloride 108 H Carbon Dioxide 27 Anion Gap 16 BUN 18 Creatinine 1.2 Est GFR ( Amer) 53 Est GFR (Non-Af Amer) 44 Random Glucose 112 H Calcium 9.1 Total Bilirubin 0.3 AST 30 ALT 21 Alkaline Phosphatase 64 Total Protein 7.5 Albumin 4.1 Globulin 3.4 Albumin/Globulin Ratio 1.2 Critical Care Progress Note - Nutrition Nutrition: Nutrition Category Date Time Status Regular Diet [DIET] Diets 11/23/17 Lunch Ordered Assessment/Plan - Assessment and Plan (Free Text) Assessment: Patient seen and examined on rounds with resident, agree with note with following additions/exceptions: Patient is 77yo female with PMHx of HTN, GERD, presented with angioedema of lips. Currently afebrile, HD stable, comfortable in NAD, no evidence of tounge swelling, lip swelling significantly diminished, tolerting diet, no dysphagia. Angioedema HTN Recommend: - supp o2 as needed - NO ID issues - BP control, Norvasc - low salt diet - Benadryl, Pepcid, Solumedrol - GI ppx - DVT ppx - Transfer to [facility] surg
[2017-11-23 23:25] VITALS: RESP 18
[2017-11-24 07:26] LABS: BASO # 0.01 K/mm3 (0.0-2.0); BASO % 0.1 % (0.0-3.0); EOS % 0.1 % (1.5-5.0); GRAN # 8.95 (1.4-6.5); GRAN % 80.8 % (50.0-68.0); HEMOGLOBIN 10.7 g/dL (12.0-16.0); LYMPH # 1.7 (1.2-3.4); LYMPH % 15.7 % (22.0-35.0); MEAN CELL VOLUME 90.3 fl (80.0-105.0); MEAN CORPUSCULAR HEMOGLOBIN 29.6 pg (25.0-35.0); MEAN CORPUSCULAR HGB CONC 32.7 g/dl (31.0-37.0); MEAN PLATELET VOLUME 10.2 fl (7.0-11.0); MONO # 0.4 (0.1-0.6); MONO % 3.3 % (1.0-6.0); RBC 3.62 10^6/uL (3.5-6.1); RED CELL DISTRIBUTION WIDTH 14.3 % (11.5-14.5); WHITE BLOOD COUNT 11.1 10^3/ul (4.5-11.0)
[2017-11-24 07:35] LABS: ALB/GLOB RATIO 1.2 (1.1-1.8); CALCIUM 9.2 mg/dL (8.4-10.5)
[2017-11-24 07:54] VITALS: PULSE 96; TEMP 98.7; O2SAT 100
[2017-11-24] MEDS: MethylPREDNISolone 40 mg Vial IVP SCH ×2 (10:04→10:09)
[2017-11-24 10:09] VITALS: BP 139/83
--- NOTE | 2017-11-24 13:09 | CP.PCM.DIS ---
<LenTorres schuster - Last Filed: 11/24/17 19:38> Provider - Provider Date of Admission: 11/22/17 14:03 Attending physician: Brianna Richardson MD Primary care physician: Dr Arvin Reza Consults: ENT Time Spent in preparation of Discharge (in minutes): 45 Hospital Course - Lab Results Lab Results: Most Recent Lab Values WBC 11.1 10^3/ul (4.5-11.0) H D 11/24/17 06:00 RBC 3.62 10^6/uL (3.5-6.1) 11/24/17 06:00 Hgb 10.7 g/dL (12.0-16.0) L 11/24/17 06:00 Hct 32.7 % (36.0-48.0) L 11/24/17 06:00 MCV 90.3 fl (80.0-105.0) 11/24/17 06:00 MCH 29.6 pg (25.0-35.0) 11/24/17 06:00 MCHC 32.7 g/dl (31.0-37.0) 11/24/17 06:00 RDW 14.3 % (11.5-14.5) 11/24/17 06:00 Plt Count 337 10^3/uL (120.0-450.0) 11/24/17 06:00 MPV 10.2 fl (7.0-11.0) 11/24/17 06:00 Gran % 80.8 % (50.0-68.0) H 11/24/17 06:00 Lymph % (Auto) 15.7 % (22.0-35.0) L 11/24/17 06:00 Mathews % (Auto) 3.3 % (1.0-6.0) 11/24/17 06:00 Eos % (Auto) 0.1 % (1.5-5.0) L 11/24/17 06:00 Baso % (Auto) 0.1 % (0.0-3.0) 11/24/17 06:00 Gran # 8.95 (1.4-6.5) H 11/24/17 06:00 Lymph # (Auto) 1.7 (1.2-3.4) 11/24/17 06:00 Mathews # (Auto) 0.4 (0.1-0.6) 11/24/17 06:00 Eos # (Auto) 0.0 (0.0-0.7) 11/24/17 06:00 Baso # (Auto) 0.01 K/mm3 (0.0-2.0) 11/24/17 06:00 Sodium 142 mmol/L (132-148) 11/24/17 06:00 Potassium 5.0 mmol/L (3.6-5.0) 11/24/17 06:00 Chloride 104 mmol/L (98-107) 11/24/17 06:00 Carbon Dioxide 26 mmol/L (21-33) 11/24/17 06:00 Anion Gap 17 (10-20) 11/24/17 06:00 BUN 18 mg/dL (7-21) 11/24/17 06:00 Creatinine 1.1 mg/dl (0.7-1.2) 11/24/17 06:00 Est GFR ( Amer) 58 11/24/17 06:00 Est GFR (Non-Af Amer) 48 11/24/17 06:00 Random Glucose 104 mg/dL (70-110) 11/24/17 06:00 Calcium 9.2 mg/dL (8.4-10.5) 11/24/17 06:00 Total Bilirubin 0.2 mg/dL (0.2-1.3) 11/24/17 06:00 AST 25 U/L (14-36) 11/24/17 06:00 ALT 24 U/L (7-56) 11/24/17 06:00 Alkaline Phosphatase 67 U/L (38-126) 11/24/17 06:00 Total Protein 7.4 g/dL (5.8-8.3) 11/24/17 06:00 Albumin 4.0 g/dL (3.0-4.8) 11/24/17 06:00 Globulin 3.4 gm/dL 11/24/17 06:00 Albumin/Globulin Ratio 1.2 (1.1-1.8) 11/24/17 06:00 - Hospital Course Hospital Course: Hospital course: 77 year old female with past medical hisotry of HTN, GERD, arthritis who presented to [facility] with 24 huor hsitory of facial edema primarily located to both lips and left side of her face. Patient was evaluted in ED and found to have difficulty swallowing, drooling or pain with swallowing. Patient was admitted to ICU for further medical management and observation for angioedema. Patient history revealed she was taking Lisinopril for history of hypertension. She stated she had been taking this medication for a number of years without side effect. ENT was consulted and evaluated the patient with reports of no signs of laryngeal edema. ENT indicated no need for outpatient follow up and to continue steroid therapy. Patient was observed overnight and waas noted to have resolution of her presenting symptoms. She was able to swallow food and liquids without difficulty. She denied any symptoms of drooling or throat pain. Patient was evaluated to be stable for discharge. She was instructed to keep a diary of allergies for the next few months and to report to an byproducts operator upon discharge. She was given a medrol dose pack, claritin an epinephrine auto injector pen. Patient was instructed to keep the epi pen on her person at all times. Patient was instructed to stop taking her lisinopril pDischarge planning including outpatient follow up, medication reconciliation, and signs and symptoms to be concerned for were discussed. Patient was in understanding and agreement with discharge plan. On discharge: Follow up with your primary care physician Dr Reza within 3-5 days upon discharged Keep a daily diary of your allergies and any and all allergic reactions you may experience Follow up with ENT upon discharge Follow up with byproducts operator upon discharge to identify your allergy status If your symptoms worsen or return go to the nearest emergency department Always keep epipen with you in case of anaphylactic reaction Discharge planning was conducted with patient including outpatient follow up, medication reconciliation, and signs and symptoms to be aware of for return to emergency department. Patient was in understanding and able to recall instructions back to primary team. Patient was deemed to be medically optimized for discharge by consultants involved in her care as well as her primary medical team. For further details regarding hospital stay please refer to full chart. - Date & Time of H&P Date of H&P: 11/24/17 Time of H&P: 11:10 Discharge Exam - Head Exam Head Exam: ATRAUMATIC, NORMAL INSPECTION, NORMOCEPHALIC - Eye Exam Eye Exam: EOMI, Normal appearance, PERRL Pupil Exam: NORMAL ACCOMODATION, PERRL - Neck Exam Neck exam: Full Rom, Normal Inspection - Respiratory Exam Respiratory Exam: Clear to PA & Lateral, NORMAL BREATHING PATTERN - Cardiovascular Exam Cardiovascular Exam: REGULAR RHYTHM, +S1, +S2 - GI/Abdominal Exam GI & Abdominal Exam: Normal Bowel Sounds - Rectal Exam Rectal Exam: Deferred - Back Exam Back exam: FULL ROM, NORMAL INSPECTION - Neurological Exam Neurological exam: Alert, CN II-XII Intact, Normal Gait, Oriented x3, Reflexes Normal - Psychiatric Exam Psychiatric exam: Normal Affect, Normal Mood - Skin Skin Exam: Dry, Intact, Normal Color, Warm Discharge Plan - Discharge Medications Prescriptions: Epinephrine HCl [Epipen Auto-Injector] 0.3 mg MR PRN PRN #1 ml PRN Reason: Anaphylaxis Loratadine [Claritin] 10 mg PO DAILY #30 tab predniSONE [Prednisone] See Taper PO DAILY #28 tab - Follow Up Plan Condition: CRITICAL Disposition: HOME/ ROUTINE Instructions: Angioedema (DC), High Blood Pressure (DC), Acid Reflux (GERD), Adolescent (DC) Additional Instructions: Follow up with your primary care physician Dr Reza within 3-5 days upon discharged Keep a daily diary of your allergies and any and all allergic reactions you may experience Follow up with ENT upon discharge If your symptoms worsen or return go to the nearest emergency department Always keep epipen with you in case of anaphylactic reaction Referrals: Justo Esquivel DO [Staff Provider] - Rosangela Pena MD [Family Provider] - <Brianna Richardson - Last Filed: 11/25/17 07:34> Provider - Provider Date of Admission: 11/22/17 14:03 Attending physician: Brianna Richardson MD Hospital Course - Lab Results Lab Results: Micro Results 11/22/17 16:00 Nose MRSA Culture (Admit) - Final MRSA NOT DETECTED Most Recent Lab Values WBC 11.1 10^3/ul (4.5-11.0) H D 11/24/17 06:00 RBC 3.62 10^6/uL (3.5-6.1) 11/24/17 06:00 Hgb 10.7 g/dL (12.0-16.0) L 11/24/17 06:00 Hct 32.7 % (36.0-48.0) L 11/24/17 06:00 MCV 90.3 fl (80.0-105.0) 11/24/17 06:00 MCH 29.6 pg (25.0-35.0) 11/24/17 06:00 MCHC 32.7 g/dl (31.0-37.0) 11/24/17 06:00 RDW 14.3 % (11.5-14.5) 11/24/17 06:00 Plt Count 337 10^3/uL (120.0-450.0) 11/24/17 06:00 MPV 10.2 fl (7.0-11.0) 11/24/17 06:00 Gran % 80.8 % (50.0-68.0) H 11/24/17 06:00 Lymph % (Auto) 15.7 % (22.0-35.0) L 11/24/17 06:00 Mathews % (Auto) 3.3 % (1.0-6.0) 11/24/17 06:00 Eos % (Auto) 0.1 % (1.5-5.0) L 11/24/17 06:00 Baso % (Auto) 0.1 % (0.0-3.0) 11/24/17 06:00 Gran # 8.95 (1.4-6.5) H 11/24/17 06:00 Lymph # (Auto) 1.7 (1.2-3.4) 11/24/17 06:00 Mathews # (Auto) 0.4 (0.1-0.6) 11/24/17 06:00 Eos # (Auto) 0.0 (0.0-0.7) 11/24/17 06:00 Baso # (Auto) 0.01 K/mm3 (0.0-2.0) 11/24/17 06:00 Sodium 142 mmol/L (132-148) 11/24/17 06:00 Potassium 5.0 mmol/L (3.6-5.0) 11/24/17 06:00 Chloride 104 mmol/L (98-107) 11/24/17 06:00 Carbon Dioxide 26 mmol/L (21-33) 11/24/17 06:00 Anion Gap 17 (10-20) 11/24/17 06:00 BUN 18 mg/dL (7-21) 11/24/17 06:00 Creatinine 1.1 mg/dl (0.7-1.2) 11/24/17 06:00 Est GFR ( Amer) 58 11/24/17 06:00 Est GFR (Non-Af Amer) 48 11/24/17 06:00 Random Glucose 104 mg/dL (70-110) 11/24/17 06:00 Calcium 9.2 mg/dL (8.4-10.5) 11/24/17 06:00 Total Bilirubin 0.2 mg/dL (0.2-1.3) 11/24/17 06:00 AST 25 U/L (14-36) 11/24/17 06:00 ALT 24 U/L (7-56) 11/24/17 06:00 Alkaline Phosphatase 67 U/L (38-126) 11/24/17 06:00 Total Protein 7.4 g/dL (5.8-8.3) 11/24/17 06:00 Albumin 4.0 g/dL (3.0-4.8) 11/24/17 06:00 Globulin 3.4 gm/dL 11/24/17 06:00 Albumin/Globulin Ratio 1.2 (1.1-1.8) 11/24/17 06:00 Attending/Attestation - Attestation I have personally seen and examined this patient.: Yes I have fully participated in the care of the patient.: Yes I have reviewed all pertinent clinical information, including history, physical exam and plan: Yes Notes (Text): 11/25/17 07:27 Attending note; Patient seen and examined with resident. Patient is a 77 year old female with past medical history of hypertension and GERD who presents with facial edema, mostly prominent in her lips. She is on lisinopril although this is not a new medication. Patient had one episode of allergic reaction in the past needed to be evaluated in the hospital. Patient takes Benadryl on and off for seasonal allergies. Treated with IV steroids, pepcid and benadryl prn. Swelling resolved. Currently no stridor, cough or wheezing. Tolerating diet well. Denies any shortness of breath. Denies any rash. Continue with norvasc for hypertension. Lisinopril is on hold. ENT evaluation appreciated. Patient is strongly advised to follow-up with byproducts operator as outpatient for further testing. Discharge home with prednisone and EpiPen. Patient is strongly advised to keep a diary and avoid allergens. Upon discharge patient will follow-up with PMD Dr. Pena.
[2017-11-24] MEDS ORDERED: Pneumococcal 23-Valent Vaccine IM ONE (13:42)
== END 2017-11-24 15:02 | disposition home or self-care (01) | DRG 916 ==
LOC: ED 12:36 → ERH 14:03 → ICU 15:37 → 5RNO 11-23 11:26
PROVIDERS: ADMIT Internal Medicine; ATTEND Internal Medicine
DX: T78.3XXA Angioneurotic edema, initial encounter (principal); T46.4X5A Adverse effect of angiotensin-converting-enzyme inhibitors, initial encounter; I10 Essential (primary) hypertension; E11.9 Type 2 diabetes mellitus without complications; D64.9 Anemia, unspecified; F03.90 Unspecified dementia, unspecified severity, without behavioral disturbance, psychotic disturbance, mood disturbance, and anxiety; K21.9 Gastro-esophageal reflux disease without esophagitis; M19.90 Unspecified osteoarthritis, unspecified site; E78.5 Hyperlipidemia, unspecified; Z80.3 Family history of malignant neoplasm of breast; Z82.49 Family history of ischemic heart disease and other diseases of the circulatory system; Z87.891 Personal history of nicotine dependence